=== PATIENT | male | born 1980 | race Caucasian/White ===

== ENCOUNTER → 2017-11-21 | Outpatient (CLI) | payer BC ==
--- NOTE | 2017-11-23 23:48 | MR ---
EXAMINATION TYPE: MR lumbar spine wo con DATE OF EXAM: 11/21/2017 COMPARISON: None HISTORY: 37-year-old male with Low back pain TECHNIQUE: Multiplanar, multisequence images of the lumbar spine were acquired. Findings: Alignment is maintained. Vertebral body heights are preserved. No suspicious bone marrow replacement. Conus medullaris is normal. No prevertebral or paravertebral soft tissue abnormality. There is a component of congenital spinal canal narrowing in the mid to lower lumbar spine with AP ca nal dimension of 1.2 cm. From T12 through L4 levels, no significant spinal canal or neuroforaminal stenosis. At L4-L5, there is diffuse disc bulge with mild disc desiccation and prominent posterior annular fiss ure. Changes result in accentuated mild spinal canal stenosis. Disc material closely approaches and m ay abut the traversing left L5 nerve root. Minimal bilateral inferior neuroforaminal narrowing. At L5-S1, there is a central, right paracentral disc protrusion. Disc material closely approaches and may abut the traversing right S1 nerve root. Minimal inferior right neural foraminal narrowing. No s camila canal stenosis. IMPRESSION: 1. Degenerative disc disease at L4-L5 and L5-S1 with mild disc desiccation and bulging discs. 2. Findings are superimposed on a mild congenital spinal canal narrowing in the mid to lower lumbar s pine. 3. At L4-L5, there is a prominent posterior annular fissure with accentuated mild spinal canal stenos is. Disc material closely approaches and may abut the traversing left L5 nerve root. Minimal bilatera l inferior foraminal narrowing. 4. At L5-S1, there is a central, right paracentral herniation with disc material closely approaching and possibly abutting the traversing right S1 nerve root.
== END | disposition home or self-care (01) ==
LOC: RADMRIMAIN 06:04
PROVIDERS: ATTEND Family Medicine
DX: M48.061 Spinal stenosis, lumbar region without neurogenic claudication (principal); M99.73 Connective tissue and disc stenosis of intervertebral foramina of lumbar region; M51.17 Intervertebral disc disorders with radiculopathy, lumbosacral region
CPT/HCPCS: 72148

== ENCOUNTER → 2019-05-06 | Outpatient (CLI) | payer OTHER, BC ==
[2019-05-06 12:31] VITALS: BP 138/85; PULSE 73; RESP 16
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
== END | disposition home or self-care (01) ==
LOC: PNWHC3 12:05
PROVIDERS: ATTEND Anesthesiology
DX: M48.061 Spinal stenosis, lumbar region without neurogenic claudication (principal); M51.16 Intervertebral disc disorders with radiculopathy, lumbar region; Z79.1 Long term (current) use of non-steroidal anti-inflammatories (NSAID); Z79.899 Other long term (current) drug therapy
CPT/HCPCS: 99211

== ENCOUNTER → 2019-05-07 | Outpatient (CLI) | payer BC ==
--- NOTE | 2019-05-08 09:52 | CT ---
EXAMINATION TYPE: CT urogram wo/w con DATE OF EXAM: 05/07/2019 COMPARISON: None INDICATION: hematuria X 1 year DLP: 1793.3 mGycm, Automated exposure control for dose reduction was used. CONTRAST: 100 mL of Isovue 300. Study performed without Oral Contrast TECHNIQUE: Axial images were obtained from above the diaphragm to the pubic rami in the axial plane a t 5 mm thick sections. Reconstructed images are reviewed on the computer in the coronal plane. FINDINGS: Limited CT sections are obtained the lung bases. The lung bases are clear. CT ABDOMEN: Liver: Normal Spleen: Normal Pancreas: Normal Adrenal glands: The adrenal glands are normal. Gallbladder: Normal Kidneys: No masses are evident. No hydronephrosis is present. No cysts are present. No renal stone s are evident. Delayed images obtained to the kidneys appear unremarkable. Aorta: Normal Inferior vena cava: Normal. CT PELVIS: Loops of bowel within the abdomen and pelvis are normal. Studies without oral contrast limiting b owel evaluation. Appendix: Normal as visualized. Urinary bladder: Appears normal pre and postcontrast. Genitourinary structures: Prostate is prominent. Some calcification is present. Osseous structures: No suspicious lytic or sclerotic lesions. Three-D reconstructed images performed separately on the computer by the technologist are presented t hrough the renal collecting system. Renal calyces and infundibulum and renal pelves appear normal. No hydronephrosis is evident. No hydroureter is evident. The distal left ureter has some limitation on visualization. Source images suggest the distal left ureter is intact without dilatation. IMPRESSIONS: 1. Normal CT urogram. 2. No suspicious etiology to account for hematuria is evident.
== END | disposition home or self-care (01) ==
LOC: RADCTMAIN 14:58
PROVIDERS: ATTEND Surgery
DX: R31.9 Hematuria, unspecified (principal)
CPT/HCPCS: 74178; 74400; Q9967

== ENCOUNTER 2019-06-17 08:54 | Day surgery (SDC) | payer BC ==
[2019-06-16 12:01] VITALS: BMI 28.8
[~2019-06-17 08:54] MED LIST: DEXAMETHASONE SOD PHOSPHATE 10 MG/ML 1 ML VIAL ONE; IOPAMIDOL M200 10 ML VIAL ONE; LACTATED RINGERS 1,000 ML IV SCH; MIDAZOLAM 2 MG/2 ML VIAL ONE; fentaNYL (PF) 50 MCG/ML 2 ML AMP ONE
[2019-06-17 09:49] VITALS: TEMP 97.9
[2019-06-17] MEDS ORDERED: LIDOCAINE 1% (10MG/ML) FOR IV START INTRADERMA ONE (09:58)
[2019-06-17] MEDS ORDERED: IV FLUID CONTINUATION 1,000 ML IV ONE (10:58)
--- NOTE | 2019-06-17 11:33 | P.PCN ---
Date of Procedure: 06/17/19 Procedure(s) Performed: PREOPERATIVE DIAGNOSIS: Lumbar radiculopathy POSTOPERATIVE DIAGNOSIS: Lumbar radiculopathy Attending physician: Meme Mckeon M.D. PROCEDURE 1. Transforaminal epidural steroid injection under fluoroscopic guidance L4-5 level, left side 2. Lumbar epidurogram ANESTHESIA: Local with 1% lidocaine 3 ml ; IV sedation with Versed and fentanyl , sedation time 6 minutes PROCEDURE INDICATION: The patient with low back pain and radiculopathy symptoms unresponsive to conservative treatment. Fluoroscopy was used for the procedure and fluoroscopic images were saved to the radiology portion of patient's chart. PROCEDURE DESCRIPTION / TECHNIQUE: The patient was seen and identified in the preoperative area. Risks, benefits, complications, and alternatives were discussed with the patient. The patient agreed to proceed with the procedure and signed the consent. IV was started, and vital signs were stable. Patient was taken to the OR and time out was completed. The patient was placed in the prone position on procedure table and a pillow was placed under the abdomen to reduce lumbar lordosis. The lumbosacral area was prepped and draped in the usual sterile fashion. Vital signs were closely monitored during the procedure. Conscious sedation was used. Using oblique fluoroscopy, the chin of the ``Dariusz dog and the skin and deeper tissues just below was localized with 1% lidocaine. Subsequently, a 22- gauge 3.5-inch spinal needle was advanced under a tunneled view fluoroscopic guidance just underneath the chin of the ``Dariusz dog . Under lateral fluoroscopy, the needle was then advanced to the posterior border of the foramen. After negative aspiration of CSF and blood and with no paresthesias, 1 mL of Isovue-200 contrast dye was injected under live fluoroscopy and there was no evidence of intravascular injection. The injectate solution consisting of 10 mg of dexamethasone with 1 mL of 1% lidocaine was then delivered. The needle was withdrawn intact. At the end of the procedure, skin was cleansed, and bandages were applied. COMPLICATIONS: None COMMENTS: DISPOSITION / PLANS: The patient was placed in a supine position and transferred to the recovery area in a stable condition for observation. There was no evidence of lower extremity motor or sensory deficit after the procedure. Patient was discharged from the recovery room after meeting discharge criteria. Home discharge instructions were given to the patient by the staff. The patient will follow up for repeat procedure in 4-6 weeks.
[2019-06-17 11:38] VITALS: BP 135/74; PULSE 77; RESP 18
--- NOTE | 2019-06-17 13:46 | FL ---
EXAMINATION TYPE: FL guided pain mgmt statistic DATE OF EXAM: 06/17/2019 HISTORY: Fluoroscopy time 5 seconds of fluoroscopy provided. IMPRESSION: 1. Fluoroscopy time.
== END 2019-06-17 11:38 | disposition home or self-care (01) ==
LOC: ORPAIN 08:54
PROVIDERS: ATTEND Anesthesiology
DX: M54.16 Radiculopathy, lumbar region (principal)
CPT/HCPCS: 64483; J2250; J1100; J3010; Q9966

== ENCOUNTER → 2019-09-08 | Outpatient (CLI) | payer BC ==
--- NOTE | 2019-09-08 19:12 | MR ---
MR pelvis with and without contrast HISTORY: Blood in semen status post vasectomy Multiplanar multisequence and postcontrast images obtained through the pelvis following 9 cc Gadavist IV Correlation CT urogram 05/07/2019 Bone marrow signal is normal. Prostate shows a normal size. Urinary bladder is unremarkable. No abnor mal enhancement. No free fluid noted within the pelvis. Spermatic cords and inguinal canals are unrem arkable and symmetric in appearance. Testes and vas deferens show a symmetric appearance, signal in t he right vas deferens however is not as T2 bright on the right as on the left, axial dataset image 24 series 701. No evident adenopathy. IMPRESSION: Asymmetry T2 signal of questionable clinical significance in the vas deferens. No abnorma lity evident to account for patient's symptoms. Follow-up as indicated.
== END | disposition home or self-care (01) ==
LOC: RADMRIMAIN 14:57
PROVIDERS: ATTEND Surgery
DX: R36.1 Hematospermia (principal)
CPT/HCPCS: 72197; A9585

== ENCOUNTER → 2020-02-28 | Outpatient (CLI) | payer BC ==
[2020-02-28 09:24] VITALS: BP 138/71; PULSE 71; RESP 18; TEMP 98
--- NOTE | 2020-02-28 09:34 | P.PAINPG ---
Subjective Progress Note Date: 02/28/20 Carlos 39-year-old gentleman presents today for reevaluation secondary to low back pain rating down his left leg. He reports she's had this pain beginning in the area which significantly improved with the transfemoral epidural steroid injection. As for his pain he reports a sharp shooting pain from the middle of his spine radiating down the left leg all way down to the ankle. Pain comes and goes depending on certain activities. Usually pain persists when standing for long periods time or sitting for long present time. Persistent in physical therapy continues to do some the exercises. He denies any other symptoms. Denies any bowel or bladder incontinence. Denies any upper extremity weakness. Denies any headaches. Objective - Vital Signs Vital signs: Vital Signs Temp 98 F 02/28/20 09:20 Pulse 71 02/28/20 09:20 Resp 18 02/28/20 09:20 BP 138/71 02/28/20 09:20 Pulse Ox 98 02/28/20 09:20 - Exam General: Awake and alert oriented 3 no distress Respiratory exam: No audible wheezing no accessory muscle usage Cardiovascular exam: regular rate, palpable bilateral pulses, no lower extremity edema Abdominal exam: No distention nontender to palpation Cervical spine: Normal alignment, Spurling's negative, facet loading negative, Hazmat Cdl A Driver strength is 5/5, blank negative Lumbar spine: There is a loss of lumbar lordosis with some atrophy of the para spinal muscles and is slightly obese midline. Lumbar spinal extension is slightly limited. Flexion is normal. Left lateral sidebending is limited, right lateral sidebending is normal. Straight leg raise is positive on the left. There is left tibialis anterior weakness compared to the right. Quadriceps and hamstring strength is normal bilaterally. Sacroiliac joints: Nontender to palpation, INGA is negative, Gaenselon negative Neuro exam: Normal sensation in bilateral upper extremities, deep tendon reflexes are 2+ bilateral upper extremities. Normal sensation in bilateral lower extremities. Deep tendon reflexes are 2+ in the right and 1+ in left patella and left Achilles. Psych exam: Cooperative, appropriate mood Assessment and Plan Assessment: #1 lumbar radiculopathy. #2 lumbar degenerative disc disease Plan: At this time we will repeat the lumbar transfemoral epidural steroid injection at the left L4-L5. Patient does not need sedation. He'll continue with conservative therapies including [facility] exercises. PQRS Measure Charge Sheet Measure #130: Documentation of Current Meds in Medical Chart: Patient's medications documented in chart Measure #226: Tobacco Use: Screen & Cessation Intervention: Pt not a tobacco user Measure #408: Opioid Therapy Follow-up Evaluation: Patient had NO f/u eval minimum every 3 months during opioid therapy Measure #317: Preventitive Care & Scrn High Bld Press & F/U: Normal blood pressure, f/u not required Measure #128: Body Mass Index (BMI) Screening & Follow-up: BMI documented within normal parameters Measure #131: Pain Assessment & Follow-up: Pain positive & plan documented Measure #431: Unhealthy Alcohol Use Preventative Care & Scrn: Patient not identified as an unhealthy alcohol user PQRS Narrative: Smoking Status Never smoker Blood Pressure 138/71 Pain Intensity [Lower Back] 6 Scale Used Numeric (1 - 10) Hx Alcohol Use (MH) Yes: social Home Medications: Ambulatory Orders Dicyclomine HCl [Bentyl] 20 mg PO QID PRN 05/03/19 Escitalopram [Lexapro] 10 mg PO DAILY 05/03/19 Meloxicam 15 mg PO DIRECTED PRN 05/03/19 Multivitamins, Thera [Multivitamin (formulary)] 1 tab PO DAILY 06/16/19 L.acidoph,Paracasei, B.lactis [Probiotic] 1 each PO DAILY 02/23/20 Controlled Substance Measures - Controlled Substance Measures Is patient prescribed a controlled substance at discharge?: No
== END | disposition home or self-care (01) ==
LOC: PNWHC3 09:13
PROVIDERS: ATTEND Hospitalist
DX: M51.16 Intervertebral disc disorders with radiculopathy, lumbar region (principal); Z79.899 Other long term (current) drug therapy; Z79.891 Long term (current) use of opiate analgesic
CPT/HCPCS: 99211

== ENCOUNTER 2020-03-28 10:04 | Day surgery (SDC) | payer BC ==
[2020-03-27 11:08] VITALS: BMI 30.2
[~2020-03-28 10:04] MED LIST changes: -DEXAMETHASONE SOD PHOSPHATE 10 MG/ML 1 ML VIAL ONE; -IOPAMIDOL M200 10 ML VIAL ONE; -MIDAZOLAM 2 MG/2 ML VIAL ONE; -fentaNYL (PF) 50 MCG/ML 2 ML AMP ONE
[2020-03-28 10:20] VITALS: RESP 16; TEMP 97.1
[2020-03-28] MEDS ORDERED: methylPREDNISolone ACETATE 40 MG/ML 1 ML VIAL ONE (10:38)
[2020-03-28] MEDS ORDERED: IOPAMIDOL M200 10 ML VIAL ONE (10:38)
--- NOTE | 2020-03-28 10:57 | P.PCN ---
Date of Procedure: 03/28/20 Procedure(s) Performed: PREOPERATIVE DIAGNOSIS: Lumbar radiculopathy . POSTOPERATIVE DIAGNOSIS: Same as preoperative diagnoses. PROCEDURE 1. Transforaminal epidural steroid injection under fluoroscopic guidance at left L4-5 level. (Fluoroscopy images stored on file in the radiology Department ) 2. Lumbar epidurogram . ANESTHESIA: Local with 1% lidocaine 3 ml only .( NO IV SEDATIONS ) EBL: Minimal PROCEDURE INDICATION: The patient with low back pain and radiculopathy symptoms unresponsive to conservative treatment. PROCEDURE DESCRIPTION / TECHNIQUE: The patient was seen and identified in the preoperative area. Risks, benefits, complications, and alternatives were discussed with the patient. The patient agreed to proceed with the procedure and signed the consent., and vital signs were stable. Patient was taken to the OR and time out was completed. The patient was placed in the prone position on procedure table and a pillow was placed under the abdomen to reduce lumbar lordosis. The lumbosacral area was prepped and draped in the usual sterile fashion. Critical pause was taken. Vital signs were closely monitored during the procedure. Using oblique fluoroscopy, the chin of the `FritzDariusz dog at L4-5 level was identified, and the skin and deeper tissues just below was localized with 1% lidocaine. Subsequently, a 22-gauge 3.5-inch spinal needle was advanced under a tunneled view fluoroscopic guidance just underneath the chin of the `FritzDariusz dog at the left L4-5 Under lateral fluoroscopy, the needle was then advanced to the posterior border of the interforaminal space. After negative aspiration of CSF and blood and with no paresthesias, 1 mL Isovue 200 contrast dye was injected excellent epidurogram and outlining of the nerve root Subsequently, 3 mL of block solution containing 80 mg Depo-Medrol and 2 mL of 0.9% normal saline PF was injected. Needle was removed and the same procedure was repeated at the right/left level (s). At the end of the procedure, skin was cleansed, and bandages were applied. COMPLICATIONS:none DISPOSITION / PLANS: The patient was placed in a supine position and transferred to the recovery area in a stable condition for observation. There was no evidence of lower extremity motor or sensory deficit after the procedure. Patient was discharged from the recovery room after meeting discharge criteria. Home discharge instructions were given to the patient by the staff. The patient was reexamined prior to discharge.
[2020-03-28 11:06] VITALS: BP 131/83; PULSE 67
--- NOTE | 2020-03-28 14:23 | FL ---
EXAMINATION TYPE: FL guided pain mgmt statistic DATE OF EXAM: 03/28/2020 CLINICAL HISTORY: Low back pain. TECHNIQUE: Fluoroscopy. COMPARISON: None. FINDINGS: Fluoroscopic guidance was provided during pain relief procedure performed by Dr. Clifton . A total of 5 seconds of fluoroscopic time was utilized during the procedure and 1 spot images are acquired. Single limited acquired shows needle localization and contrast injection inferior L4 level . IMPRESSION: As Above.
== END 2020-03-28 11:16 | disposition home or self-care (01) ==
LOC: ORPAIN 10:04
PROVIDERS: ATTEND Specialist
DX: M54.16 Radiculopathy, lumbar region (principal)
CPT/HCPCS: 64483; J1030; Q9966

== ENCOUNTER 2021-02-16 10:54 | Day surgery (SDC) | payer BC ==
[2021-02-14 11:24] VITALS: BMI 28.0
[2021-02-16 11:18] VITALS: TEMP 97.9
[2021-02-16] MEDS ORDERED: LIDOCAINE 1% (10MG/ML) FOR IV START INTRADERMA ONE (11:33)
[2021-02-16] MEDS: LACTATED RINGERS 1,000 ML IV SCH ×2 (11:33→12:49)
[2021-02-16] MEDS ORDERED: PROPOFOL 10 MG/ML 20 ML VIAL IV ONE (12:50)
[2021-02-16] MEDS ORDERED: LIDOCAINE 1% INJ 10MG/ML (20 ML MDV) ONE (12:50)
--- NOTE | 2021-02-16 13:08 | P.PCN ---
Date of Procedure: 02/16/21 Procedure(s) Performed: Brief history: Patient is a pleasant 40-year-old white male scheduled for an elective upper endoscopy as well as colonoscopy as a part of evaluation of GERD, abdominal pain and chronic diarrhea for the last 10 years duration. He usually has not was anywhere from 3-5 a day which are loose to watery in consistency. He denies any rectal bleeding. Procedure performed: Esophagogastroduodenoscopy with biopsy Colonoscopy with biopsy Preoperative diagnosis: GERD/abdominal pain/chronic diarrhea of several years duration Anesthesia: MAC Procedure: After informed consent was obtained from the patient was brought into the endoscopy unit and IV sedation was administered by anesthesia under continuous monitoring. Initially upper endoscopy was done. The Olympus GF 160 video endoscope was inserted inserted into the mouth and esophagus intubated without any difficulty and was gradually advanced into the stomach and duodenum and carefully examined. The bulb and second part of the duodenum appeared normal. Biopsies were done from the duodenum to rule out celiac disease. The scope was then withdrawn into the stomach adequately insufflated with air and upon careful examination the antrum had mild gastritis and biopsies were done from this area. The body, cardia and fundus appeared normal. The scope was then withdrawn into the esophagus. The GE junction was located at 40 cm to the incisors. It appeared regular wit2 superficial erosions consistent with LA grade B reflux esophagitis.Rest of the esophagus appeared normal. Patient tolerated the procedure well. At this time the patient continued to remain sedation. Initial digital rectal examination was normal. Olympus CF 160 video colonoscope was then inserted into the rectum and gradually advanced to the cecum without any difficulty. Careful examination was performed as the scope was gradually being withdrawn. The prep was excellent. Terminal ileum was intubated and 20 cm visualized that had mild lymphoid hyperplasia but no evidence of ileitis. The cecum, ascending colon, transverse colon, descending colon, sigmoid colon and rectum appeared normal. and biopsies were done from ascending and descending colon to rule out microscopic/collagenous colitis Retroflexion was performed in the rectum and no lesions were noted. Patient tolerated the procedure well. Impression: 1. Upper endoscopy revealed mild antral gastritis and LA grade B reflux esophagitis 2. Colonoscopy was within normal limits with no evidence of colitis or colorectal neoplasia Recommendations: Findings of this examination were discussed with the patient as well as his family. He was advised to follow with the biopsy results. He will continue with Bentyl as needed for the chronic diarrhea.
[2021-02-16 13:45] VITALS: BP 112/76; PULSE 70; RESP 20
== END 2021-02-16 13:40 | disposition home or self-care (01) ==
LOC: ORWHC2ENDO 10:54
PROVIDERS: ATTEND Internal Medicine Gastroenterology
DX: K21.00 Gastro-esophageal reflux disease with esophagitis, without bleeding (principal); K29.60 Other gastritis without bleeding; K52.9 Noninfective gastroenteritis and colitis, unspecified
CPT/HCPCS: 45380; 43239; J2001; J2704; 88305

== ENCOUNTER 2021-04-17 06:20 | Emergency (ER) | payer BC ==
[2021-04-17 06:28] VITALS: RESP 18
[2021-04-17] MEDS ORDERED: ONDANSETRON 4 MG/2 ML VIAL IVP STA (06:59)
[2021-04-17] MEDS ORDERED: SODIUM CHLORIDE 0.9% 1,000 ML IV STA (06:59)
--- NOTE | 2021-04-17 07:08 | ED ---
General Adult HPI - General Chief complaint: Syncope Stated complaint: Syncope, Covid+ Time Seen by Provider: 04/17/21 06:34 Source: patient, RN notes reviewed Mode of arrival: ambulatory Limitations: no limitations - History of Present Illness Initial comments: Patient 40-year-old male presented to the emergency room today with chief complaint of cough congestion. Patient does admit that symptoms started approximately one week ago. He does admit that he tested positive COVID-19 the following day. Patient does admit that last night he was getting up to the bathroom. He felt a little dizzy little lightheaded. He believes he passed out. Patient does admit that when he went down he fell down onto the right knee. He does admit feeling a little bit better today. Says some soreness to the right knee is worse with movements. The patient denies any other complaints or any other symptoms currently at this time. - Related Data Home Medications Medication Instructions Recorded Confirmed Dicyclomine HCl [Bentyl] 20 mg PO QID PRN 05/03/19 02/14/21 Escitalopram [Lexapro] 20 mg PO DAILY 05/03/19 02/14/21 Multivitamins, Thera [Multivitamin 1 tab PO DAILY 06/16/19 02/14/21 (formulary)] L.acidoph,Paracasei, B.lactis 1 each PO DAILY 02/23/20 02/14/21 [Probiotic] Ascorbic Acid [Vitamin C] 500 mg PO DAILY 02/14/21 02/14/21 Cholecalciferol [Vitamin D3 (25 25 mcg PO DAILY 02/14/21 02/14/21 Mcg = 1000 Iu)] predniSONE See Taper PO DIRECTED 02/14/21 02/14/21 Allergies Allergy/AdvReac Type Severity Reaction Status Date / Time No Known Allergies Allergy Verified 04/17/21 06:28 Review of Systems ROS Statement: Those systems with pertinent positive or pertinent negative responses have been documented in the HPI. ROS Other: All systems not noted in ROS Statement are negative. Past Medical History Past Medical History: Hearing Disorder / Deafness, Musculoskeletal Disorder Additional Past Medical History / Comment(s): Back pain, hx of colitis, IBS, tinnitus. CURRENTLY ON TAPER PREDNISONE PACK FOR POSSIBLE INNER LT EAR INFECTION History of Any Multi-Drug Resistant Organisms: None Reported Additional Past Surgical History / Comment(s): deviated septum sx. Pain procedure 2/13/20, wisdom teeth. COLONOSCOPY Past Anesthesia/Blood Transfusion Reactions: No Reported Reaction Past Psychological History: Anxiety, PTSD Smoking Status: Never smoker Past Alcohol Use History: Occasional Past Drug Use History: None Reported - Past Family History Mother Family Medical History: No Reported History General Exam - General Exam Comments Initial Comments: General: The patient is awake and alert, in no distress, and does not appear acutely ill. Eye: Pupils are equal, round and reactive to light, extra-ocular movements are intact. No nystagmus. There is normal conjunctiva bilaterally. No signs of icterus. Ears, nose, mouth and throat: There are moist mucous membranes and no oral lesions. Neck: The neck is supple, there is no tenderness or JVD. Cardiovascular: There is a regular rate and rhythm. No murmur, rub or gallop is appreciated. Respiratory: Lungs are clear to auscultation, respirations are non-labored, breath sounds are equal. No wheezes, stridor, rales, or rhonchi. Musculoskeletal: Normal ROM, no tenderness. Strength 5/5. Sensation intact. Pulses equal bilaterally 2+. Neurological: A&O x 3. CN II-XII intact, There are no obvious motor or sensory deficits. Coordination appears grossly intact. Speech is normal. Skin: Skin is warm and dry and no rashes or lesions are noted. Psychiatric: Cooperative, appropriate mood & affect, normal judgment. Limitations: no limitations Course Vital Signs 04/17/21 04/17/21 04/17/21 06:24 06:33 08:04 Temperature 98.6 F Pulse Rate 74 69 Pulse Rate [ 67 Mental Health Specialist ] Respiratory 18 18 Rate Blood Pressure 127/86 114/68 O2 Sat by Pulse 99 97 Oximetry EKG Findings - EKG Comments: EKG Findings:: EKG performed: 632. Normal sinus rhythm at 67 bpm. LA interval 146. QRS 100. QT/QTc 394/416. No acute ST changes. Medical Decision Making - Medical Decision Making Chest x-ray was reviewed and was unremarkable. Patient's pulse ox remains stable. Was discussed with patient about myocardial bodies. Emergency room. Patient was advised that this is an expiratory mental drug that is authorized to emergency use. Patient was agreeable to this he had a infusion here in the emergency room. His labs were reviewed. His potassium was 3.2 was given potassium supplement. Sodium 128. Was given IV fluids. Patient states feeling well at this time will be discharged home to follow-up family physician return here to emergency room if any symptoms increase worsen or for any other concerns. He states understanding and is in agreement. - Lab Data Result diagrams: 04/17/21 07:06 04/17/21 07:06 Lab Results 04/17/21 04/17/21 04/17/21 Range/Units 07:06 07:06 07:06 WBC 6.6 (3.8-10.6) k/uL RBC 5.15 (4.30-5.90) m/uL Hgb 16.5 (13.0-17.5) gm/dL Hct 47.5 (39.0-53.0) % MCV 92.2 (80.0-100.0) fL MCH 32.0 (25.0-35.0) pg MCHC 34.7 (31.0-37.0) g/dL RDW 12.6 (11.5-15.5) % Plt Count 202 (150-450) k/uL MPV 6.9 Neutrophils % 74 % Lymphocytes % 16 % Monocytes % 8 % Eosinophils % 0 % Basophils % 0 % Neutrophils # 4.8 (1.3-7.7) k/uL Lymphocytes # 1.0 (1.0-4.8) k/uL Monocytes # 0.5 (0-1.0) k/uL Eosinophils # 0.0 (0-0.7) k/uL Basophils # 0.0 (0-0.2) k/uL Sodium 128 L (137-145) mmol/L Potassium 3.2 L (3.5-5.1) mmol/L Chloride 92 L (98-107) mmol/L Carbon Dioxide 28 (22-30) mmol/L Anion Gap 8 mmol/L BUN 27 H (9-20) mg/dL Creatinine 0.92 (0.66-1.25) mg/dL Est GFR (CKD-EPI)AfAm >90 (>60 ml/min/1.73 sqM) Est GFR (CKD-EPI)NonAf >90 (>60 ml/min/1.73 sqM) Glucose 125 H (74-99) mg/dL Calcium 8.5 (8.4-10.2) mg/dL Troponin I <0.012 (0.000-0.034) ng/mL Disposition Clinical Impression: COVID-19, Hypokalemia Disposition: HOME SELF-CARE Condition: Good Additional Instructions: Please use medication as discussed. Please follow-up with family doctor in the next 2 days of symptoms have not improved. Please return to emergency room if the symptoms increase or worsen or for any other concerns. Is patient prescribed a controlled substance at d/c from ED?: No Referrals: Jose Angel Joshi MD [Primary Care Provider] - 1-2 days Time of Disposition: 08:41
[2021-04-17 07:26] LABS: Basophils % (A) 0 %; Eosinophils % (A) 0 %; HCT 47.5 % (39.0-53.0); HGB 16.5 gm/dL (13.0-17.5); Lymphocytes % (A) 16 %; MCHC 34.7 g/dL (31.0-37.0); MCV 92.2 fL (80.0-100.0); Mean Platelet Volume 6.9; Monocytes # (A) 0.5 k/uL (0-1.0); Monocytes % (A) 8 %; Neutrophils # (A) 4.8 k/uL (1.3-7.7); Neutrophils % (A) 74 %; Platelet Count 202 k/uL (150-450); RBC 5.15 m/uL (4.30-5.90); RDW 12.6 % (11.5-15.5); WBC 6.6 k/uL (3.8-10.6)
[2021-04-17] MEDS ORDERED: BAMLANIVIMAB (EUA) 700 MG, ETESEVIMAB (EUA) 1,400 MG in SODIUM CHLORIDE 0.9% 50 ML IVPB ONE (07:30)
[2021-04-17] MEDS ORDERED: ACETAMINOPHEN TAB 500 MG TAB PO STA (07:32)
[2021-04-17 07:47] LABS: African American GFR (CKD) >90 (>60 ml/min/1.73 sqM); Anion Gap 8 mmol/L; Blood Urea Nitrogen 27 mg/dL (9-20); Calcium 8.5 mg/dL (8.4-10.2); Carbon Dioxide 28 mmol/L (22-30); Chloride 92 mmol/L (98-107); Glucose 125 mg/dL (74-99); Non-African American GFR(CKD) >90 (>60 ml/min/1.73 sqM); Potassium 3.2 mmol/L (3.5-5.1); Sodium 128 mmol/L (137-145)
--- NOTE | 2021-04-17 07:58 | XR ---
EXAMINATION TYPE: XR knee complete RT DATE OF EXAM: 04/17/2021 CLINICAL HISTORY: Fall injury with pain. TECHNIQUE: Three views of the right knee are obtained. COMPARISON: None. FINDINGS: There is no acute fracture/dislocation evident in right knee. Mild narrowing medial tibiof emoral and patellofemoral compartments. No significant spurring. Overlying clothing material distal f emoral level. IMPRESSION: There is no acute fracture or dislocation in the right knee.
[2021-04-17] MEDS ORDERED: SODIUM CHLORIDE 0.9% 50 ML IVPB ONE (08:00)
--- NOTE | 2021-04-17 08:08 | XR ---
EXAMINATION TYPE: XR chest 1V portable DATE OF EXAM: 04/17/2021 COMPARISON: NONE HISTORY: Cough and Covid. TECHNIQUE: Single AP portable frontal upright view of the chest is obtained. FINDINGS: There is no focal air space opacity, pleural effusion, or pneumothorax seen. The cardiac silhouette size is within normal limits. The osseous structures are intact. Overlying EKG leads. IMPRESSION: No acute pulmonary process.
[2021-04-17] MEDS ORDERED: POTASSIUM CHLORIDE ER 20 MEQ TAB.ER PO STA (08:14)
[2021-04-17 09:26] VITALS: BP 115/71; PULSE 85; TEMP 98.4
== END 2021-04-17 09:25 | disposition home or self-care (01) ==
LOC: EC 06:20
DX: U07.1 COVID-19 (principal); E87.6 Hypokalemia; R55 Syncope and collapse
CPT/HCPCS: 36415; 93005; 80048; 84484; 85025; 73562; 71045; 99284; 96374; 96361; J2405; J3490

== ENCOUNTER → 2021-05-17 | Outpatient (CLI) | payer BC ==
[2021-05-17 19:05] LABS: Basophils # (A) 0.04 X 10*3/uL (0.00-0.10); Basophils % (A) 0.5 %; Eosinophils # (A) 0.08 X 10*3/uL (0.04-0.35); Eosinophils % (A) 0.9 %; HCT 52.5 % (39.6-50.0); Lymphocytes # (A) 2.15 X 10*3/uL (0.90-5.00); Lymphocytes % (A) 25.1 %; MCH 30.2 pg (27.0-32.0); MCHC 32.4 g/dL (32.0-37.0); MCV 93.4 fL (80.0-97.0); Mean Platelet Volume 8.9 fL (9.5-12.2); Monocytes # (A) 0.55 X 10*3/uL (0.20-1.00); Monocytes % (A) 6.4 %; Neutrophils % (A) 66.6 %; Platelet Count 272 X 10*3/uL (140-440); RBC 5.62 X 10*6/uL (4.40-5.60); RDW 13.5 % (11.5-14.5); WBC 8.56 X 10*3/uL (4.50-10.00)
[2021-05-17 19:21] LABS: African American GFR (CKD) 106.3 (60.0-200.0); Albumin 4.8 g/dL (3.8-4.9); Albumin/Globulin Ratio 1.7 (1.60-3.17); Anion Gap 14.7 mmol/L (10.00-18.00); BUN/Creat Ratio 21.36 Ratio (12.00-20.00); Carbon Dioxide 27.7 mmol/L (20.0-27.5); Globulin 2.8 g/dL (1.6-3.3); Non-African American GFR(CKD) 91.7 (60.0-200.0); Potassium 3.8 mmol/L (3.5-5.5); Total Bilirubin 0.4 mg/dL (0.30-1.20); Total Protein 7.6 g/dL (6.2-8.2)
[2021-05-17 20:55] LABS: Erythrocyte Sedimentation Rate 4 mm/Hr (0-15)
== END | disposition home or self-care (01) ==
LOC: LABWHC1 12:42
PROVIDERS: ATTEND Nurse Practitioner Adult Health
DX: U07.1 COVID-19 (principal); J12.82 Pneumonia due to coronavirus disease 2019
CPT/HCPCS: 36415; 80053; 85025; 85379; 85652

== ENCOUNTER 2021-05-30 09:01 | Emergency (ER) | payer BC ==
[2021-05-30 09:11] VITALS: RESP 18; TEMP 97.7
[2021-05-30] MEDS ORDERED: SODIUM CHLORIDE 0.9% 1,000 ML IV STA (09:24)
--- NOTE | 2021-05-30 09:31 | ED ---
General Adult HPI - General Chief complaint: Syncope Stated complaint: Syncope Time Seen by Provider: 05/30/21 09:12 Source: patient, family Mode of arrival: ambulatory Limitations: no limitations - History of Present Illness Initial comments: 40-year-old male presents to the emergency room for a chief complaint of syncope. Patient states he was at work sitting down when he started to get tunnel vision and broke up in a cold sweat. States that he passed out. He did not hit his head. Patient states this happened a couple months ago when he had COVID-19. Patient denies any chest pain or shortness of breath. Patient did have a shaking episode when this happened. Patient does take diuretic for fluid behind his left ear drum. Patient has no other complaints at this time including shortness of breath, chest pain, abdominal pain, nausea or vomiting, headache, or visual changes. - Related Data Home Medications Medication Instructions Recorded Confirmed Dicyclomine HCl [Bentyl] 20 mg PO QID PRN 05/03/19 02/14/21 Escitalopram [Lexapro] 20 mg PO DAILY 05/03/19 02/14/21 Multivitamins, Thera [Multivitamin 1 tab PO DAILY 06/16/19 02/14/21 (formulary)] L.acidoph,Paracasei, B.lactis 1 each PO DAILY 02/23/20 02/14/21 [Probiotic] Ascorbic Acid [Vitamin C] 500 mg PO DAILY 02/14/21 02/14/21 Cholecalciferol [Vitamin D3 (25 25 mcg PO DAILY 02/14/21 02/14/21 Mcg = 1000 Iu)] predniSONE See Taper PO DIRECTED 02/14/21 02/14/21 Allergies Allergy/AdvReac Type Severity Reaction Status Date / Time No Known Allergies Allergy Verified 05/30/21 09:11 Review of Systems ROS Statement: Those systems with pertinent positive or pertinent negative responses have been documented in the HPI. ROS Other: All systems not noted in ROS Statement are negative. Past Medical History Past Medical History: Hearing Disorder / Deafness, Musculoskeletal Disorder Additional Past Medical History / Comment(s): Back pain, hx of colitis, IBS, tinnitus. CURRENTLY ON TAPER PREDNISONE PACK FOR POSSIBLE INNER LT EAR INFECTION History of Any Multi-Drug Resistant Organisms: None Reported Additional Past Surgical History / Comment(s): deviated septum sx. Pain procedure 06/17/19, wisdom teeth. COLONOSCOPY Past Anesthesia/Blood Transfusion Reactions: No Reported Reaction Past Psychological History: Anxiety, PTSD Smoking Status: Never smoker Past Alcohol Use History: Occasional Past Drug Use History: None Reported - Past Family History Mother Family Medical History: No Reported History General Exam Limitations: no limitations General appearance: alert, in no apparent distress Head exam: Present: atraumatic Eye exam: Present: normal appearance, PERRL, EOMI. Absent: scleral icterus, conjunctival injection ENT exam: Present: normal exam, mucous membranes moist Neck exam: Present: normal inspection, full ROM. Absent: tenderness Respiratory exam: Present: normal lung sounds bilaterally. Absent: respiratory distress, wheezes Cardiovascular Exam: Present: regular rate, normal rhythm, normal heart sounds GI/Abdominal exam: Present: soft, normal bowel sounds. Absent: distended, tenderness Neurological exam: Present: alert Course Vital Signs 05/30/21 05/30/21 09:05 10:16 Temperature 97.7 F Pulse Rate 73 65 Respiratory 18 18 Rate Blood Pressure 137/86 151/73 O2 Sat by Pulse 99 98 Oximetry EKG Findings - EKG Comments: EKG Findings:: Normal sinus rhythm, ventricular rate 75, VT interval 148, QTC 4 26 Medical Decision Making - Medical Decision Making Vitals are stable. Patient well-appearing. Patient does have some dehydration on laboratory work with a BUN to creatinine ratio of 25. Patient given a liter of fluid. Urinalysis unremarkable. EKG nonischemic and troponin negative. D- dimer is normal. I did CT the brain as he was having convulsive movements with syncope which was negative for acute process. At this time I feel the patient had a syncopal episode as he had recent syncopal symptoms, and no postictal status, no biting of the tongue or loss of bladder or bowel. He needs to follow up with primary care for and is minute, possible referral to cardiology. Also discussed asking if they want him to see neuro. Patient is also noted to be on a diuretic for water behind the eardrum. At this point it may be contributing to his dehydration. Discussed possibly discontinuing this. He will talk to his doctor. - Lab Data Result diagrams: 05/30/21 09:37 05/30/21 09:37 Lab Results 05/30/21 05/30/21 05/30/21 Range/Units 09:37 09:37 09:37 WBC 8.2 (3.8-10.6) k/uL RBC 4.86 (4.30-5.90) m/uL Hgb 15.6 (13.0-17.5) gm/dL Hct 46.6 (39.0-53.0) % MCV 96.0 (80.0-100.0) fL MCH 32.2 (25.0-35.0) pg MCHC 33.6 (31.0-37.0) g/dL RDW 13.7 (11.5-15.5) % Plt Count 320 (150-450) k/uL MPV 6.3 Neutrophils % 82 % Lymphocytes % 11 % Monocytes % 4 % Eosinophils % 1 % Basophils % 0 % Neutrophils # 6.8 (1.3-7.7) k/uL Lymphocytes # 0.9 L (1.0-4.8) k/uL Monocytes # 0.4 (0-1.0) k/uL Eosinophils # 0.0 (0-0.7) k/uL Basophils # 0.0 (0-0.2) k/uL PT 10.7 (9.0-12.0) sec INR 1.0 (<1.2) APTT 24.7 (22.0-30.0) sec D-Dimer 0.20 (<0.60) mg/L FEU Sodium 131 L (137-145) mmol/L Potassium 3.7 (3.5-5.1) mmol/L Chloride 96 L (98-107) mmol/L Carbon Dioxide 30 (22-30) mmol/L Anion Gap 5 mmol/L BUN 23 H (9-20) mg/dL Creatinine 0.92 (0.66-1.25) mg/dL Est GFR (CKD-EPI)AfAm >90 (>60 ml/min/1.73 sqM) Est GFR (CKD-EPI)NonAf >90 (>60 ml/min/1.73 sqM) Glucose 142 H (74-99) mg/dL Calcium 9.5 (8.4-10.2) mg/dL Magnesium 2.0 (1.6-2.3) mg/dL Total Bilirubin 1.0 (0.2-1.3) mg/dL AST 24 (17-59) U/L ALT 23 (4-49) U/L Alkaline Phosphatase 86 (38-126) U/L Troponin I (0.000-0.034) ng/mL Total Protein 7.7 (6.3-8.2) g/dL Albumin 4.5 (3.5-5.0) g/dL Urine Color Urine Appearance (Clear) Urine pH (5.0-8.0) Ur Specific [place] (1.001-1.035) Urine Protein (Negative) Urine Glucose (UA) (Negative) Urine Ketones (Negative) Urine Blood (Negative) Urine Nitrite (Negative) Urine Bilirubin (Negative) Urine Urobilinogen (<2.0) mg/dL Ur Leukocyte Esterase (Negative) 05/30/21 05/30/21 Range/Units 09:37 10:16 WBC (3.8-10.6) k/uL RBC (4.30-5.90) m/uL Hgb (13.0-17.5) gm/dL Hct (39.0-53.0) % MCV (80.0-100.0) fL MCH (25.0-35.0) pg MCHC (31.0-37.0) g/dL RDW (11.5-15.5) % Plt Count (150-450) k/uL MPV Neutrophils % % Lymphocytes % % Monocytes % % Eosinophils % % Basophils % % Neutrophils # (1.3-7.7) k/uL Lymphocytes # (1.0-4.8) k/uL Monocytes # (0-1.0) k/uL Eosinophils # (0-0.7) k/uL Basophils # (0-0.2) k/uL PT (9.0-12.0) sec INR (<1.2) APTT (22.0-30.0) sec D-Dimer (<0.60) mg/L FEU Sodium (137-145) mmol/L Potassium (3.5-5.1) mmol/L Chloride (98-107) mmol/L Carbon Dioxide (22-30) mmol/L Anion Gap mmol/L BUN (9-20) mg/dL Creatinine (0.66-1.25) mg/dL Est GFR (CKD-EPI)AfAm (>60 ml/min/1.73 sqM) Est GFR (CKD-EPI)NonAf (>60 ml/min/1.73 sqM) Glucose (74-99) mg/dL Calcium (8.4-10.2) mg/dL Magnesium (1.6-2.3) mg/dL Total Bilirubin (0.2-1.3) mg/dL AST (17-59) U/L ALT (4-49) U/L Alkaline Phosphatase (38-126) U/L Troponin I <0.012 (0.000-0.034) ng/mL Total Protein (6.3-8.2) g/dL Albumin (3.5-5.0) g/dL Urine Color Light Yellow Urine Appearance Clear (Clear) Urine pH 7.5 (5.0-8.0) Ur Specific [place] 1.012 (1.001-1.035) Urine Protein Negative (Negative) Urine Glucose (UA) Negative (Negative) Urine Ketones Negative (Negative) Urine Blood Negative (Negative) Urine Nitrite Negative (Negative) Urine Bilirubin Negative (Negative) Urine Urobilinogen <2.0 (<2.0) mg/dL Ur Leukocyte Esterase Negative (Negative) Disposition Clinical Impression: Syncope, Dehydration Disposition: HOME SELF-CARE Condition: Good Instructions (If sedation given, give patient instructions): Syncope (ED) Additional Instructions: Please follow-up with your primary care doctor this week. Discuss whether you should continue your diuretic. You may need referral to a specialist. Return to the emergency room for any worsening symptoms. Is patient prescribed a controlled substance at d/c from ED?: No Referrals: Jose Angel Joshi MD [Primary Care Provider] - 1-2 days Time of Disposition: 11:11
[2021-05-30 09:46] LABS: Basophils % (A) 0 %; Eosinophils % (A) 1 %; HCT 46.6 % (39.0-53.0); HGB 15.6 gm/dL (13.0-17.5); Lymphocytes # (A) 0.9 k/uL (1.0-4.8); Lymphocytes % (A) 11 %; MCH 32.2 pg (25.0-35.0); MCHC 33.6 g/dL (31.0-37.0); Mean Platelet Volume 6.3; Monocytes # (A) 0.4 k/uL (0-1.0); Monocytes % (A) 4 %; Neutrophils # (A) 6.8 k/uL (1.3-7.7); Neutrophils % (A) 82 %; Platelet Count 320 k/uL (150-450); RBC 4.86 m/uL (4.30-5.90); RDW 13.7 % (11.5-15.5); WBC 8.2 k/uL (3.8-10.6)
--- NOTE | 2021-05-30 09:58 | CT ---
EXAMINATION TYPE: CT brain wo con DATE OF EXAM: 05/30/2021 COMPARISON: None HISTORY: syncopal episode CT DLP: 1086.[address] of the brain was performed. The ventricles, basal cisterns and sulci overlying the cerebral convexities demonstrate a normal appe arance. There is no evidence for intracranial hemorrhage or sulcal effacement. No mass effects are seen. Osseous calvarium is intact. If symptoms persist consider MRI as clinically warranted. IMPRESSION: 1. No acute intracranial process is seen at this time.
--- NOTE | 2021-05-30 10:00 | XR ---
EXAMINATION TYPE: XR chest 2V DATE OF EXAM: 05/30/2021 COMPARISON: 04/17/2021 HISTORY: Syncope TECHNIQUE: Frontal and lateral views of the chest are obtained. FINDINGS: There is no focal air space opacity. No evidence for pneumothorax. No pleural effusion. The cardiac silhouette size is within normal limits. The osseous structures are grossly intact. IMPRESSION: 1. No acute cardiopulmonary process.
[2021-05-30 10:07] LABS: ALT 23 U/L (4-49); AST 24 U/L (17-59); African American GFR (CKD) >90 (>60 ml/min/1.73 sqM); Albumin 4.5 g/dL (3.5-5.0); Alkaline Phosphatase 86 U/L (38-126); Anion Gap 5 mmol/L; Blood Urea Nitrogen 23 mg/dL (9-20); Calcium 9.5 mg/dL (8.4-10.2); Carbon Dioxide 30 mmol/L (22-30); Chloride 96 mmol/L (98-107); Glucose 142 mg/dL (74-99); Non-African American GFR(CKD) >90 (>60 ml/min/1.73 sqM); Potassium 3.7 mmol/L (3.5-5.1); Sodium 131 mmol/L (137-145); Total Protein 7.7 g/dL (6.3-8.2)
[2021-05-30 10:11] LABS: Partial Thromboplastin Time 24.7 sec (22.0-30.0); Prothrombin Time 10.7 sec (9.0-12.0)
[2021-05-30] MEDS ORDERED: ONDANSETRON 4 MG/2 ML VIAL IVP STA (10:22)
[2021-05-30 10:33] LABS: Appearance,Urine Clear (Clear); Bilirubin,Urine Negative (Negative); Blood,Urine Negative (Negative); Color,Urine Light Yellow; Glucose,Urine (UA) Negative (Negative); Ketones,Urine Negative (Negative); Leukocyte Esterase,Urine Negative (Negative); Nitrite,Urine Negative (Negative); PH, Urine 7.5 (5.0-8.0); Protein,Urine Negative (Negative); Specific Gravity,Urine 1.012 (1.001-1.035); Urobilinogen,Urine <2.0 mg/dL (<2.0)
[2021-05-30 11:26] VITALS: BP 139/85; PULSE 73
== END 2021-05-30 11:26 | disposition home or self-care (01) ==
LOC: EC 09:01
DX: R55 Syncope and collapse (principal); E86.0 Dehydration
CPT/HCPCS: 36415; 93005; 85379; 80053; 83735; 84484; 85025; 85610; 85730; 81003; 71046; 70450; 99284; 96374; J2405

== ENCOUNTER → 2022-12-04 | Outpatient (CLI) | payer OTHER ==
--- NOTE | 2022-12-04 11:13 | CA ---
Transthoracic Echo Report Name: Rian Robin Age: 42 Gender: M : 1980 Exam Date: 12/04/2022 08:47 Exam Location: [facility] Ht (in): 69 Wt (lb): 210 Ordering Physician: [facility], Clinic Attending/Referring Phys: Divina Hopkins PAC Labeling Machine Operator Holly Mejia [facility] Procedure CPT: Indications: R07.89 Cardiac Hx: Technical Quality: Fair Contrast 1: Total Dose (mL): Contrast 2: Total Dose (mL): MEASUREMENTS (Male / Female) Normal Values 2D ECHO LV Diastolic Diameter PLAX 5.1 cm 4.2 - 5.9 / 3.9 - 5.3 cm LV Systolic Diameter PLAX 3.6 cm IVS Diastolic Thickness 0.9 cm 0.6 - 1.0 / 0.6 - 0.9 cm LVPW Diastolic Thickness 0.9 cm 0.6 - 1.0 / 0.6 - 0.9 cm LV Relative Wall Thickness 0.4 LVOT Diameter 2.1 cm Ascending Aorta Diameter 3.0 cm M-MODE Aortic Root Diameter MM 2.7 cm LA Systolic Diameter MM 3.8 cm LA Ao Ratio MM 1.4 AV Cusp Separation MM 2.4 cm DOPPLER AV Peak Velocity 98.0 cm/s AV Peak Gradient 3.8 mmHg AV Mean Velocity 75.3 cm/s AV Mean Gradient 2.4 mmHg AV Velocity Time Integral 21.2 cm LVOT Peak Velocity 83.3 cm/s LVOT Peak Gradient 2.8 mmHg LVOT Velocity Time Integral 16.8 cm LVOT Stroke Volume 55.4 cm??? LVOT Stroke Volume Index 26.3 ml/m??? LVOT Cardiac Index 1397.5 cm???/min???m??? AV Area Cont Eq vti 2.6 cm??? AV Area Cont Eq pk 2.8 cm??? Mitral E Point Velocity 81.7 cm/s Mitral A Point Velocity 50.0 cm/s Mitral E to A Ratio 1.6 MV Deceleration Time 138.6 ms LV E' Lateral Velocity 10.9 cm/s Mitral E to LV E' Lateral Ratio 7.5 LV E' Septal Velocity 8.9 cm/s Mitral E to LV E' Septal Ratio 9.1 TR Peak Velocity 235.8 cm/s TR Peak Gradient 22.2 mmHg Right Atrial Pressure 3.0 mmHg Pulmonary Artery Systolic Pressu 25.2 mmHg Right Ventricular Systolic Press 25.2 mmHg FINDINGS Left Ventricle Normal Left ventricular size, wall thickness, systolic function with no obvious regional wall motion abnormalities. Left ventricular ejection fraction is estimated at 55-60 %. Right Ventricle [id number] right ventricular dilatation. Low normal right ventricular global systolic function. Right Atrium Mild right atrial dilatation. Left Atrium Normal left atrial size. Mitral Valve Structurally normal mitral valve. Mild mitral regurgitation. Aortic Valve Trileaflet aortic valve. No aortic valve stenosis or regurgitation. Tricuspid Valve Structurally normal tricuspid valve. Mild tricuspid regurgitation. Pulmonic Valve Structurally normal pulmonic valve. Trace to mild pulmonic regurgitation. Pericardium No pericardial effusion. Aorta Normal size aortic root and proximal ascending aorta. CONCLUSIONS 1. Normal left ventricle size and systolic function 2. Mild mitral and tricuspid regurgitation with no evidence of pulmonary hypertension 3. Dilated right ventricle Previewed by: Dr. Newton Aguila MD (Electronically Signed) Final Date: 04 December 2022 11:11
== END | disposition home or self-care (01) ==
LOC: RADECHMAIN 08:09
DX: I08.1 Rheumatic disorders of both mitral and tricuspid valves (principal); R07.89 Other chest pain
CPT/HCPCS: 93306

== ENCOUNTER → 2022-12-04 | Outpatient (CLI) | payer OTHER ==
--- NOTE | 2022-12-04 11:23 | CA ---
Exercise Stress Test Report Name: Rian Robin Exam Date: 12/04/2022 10:01 Exam Location: [facility] Stress Ht (in): 69 Wt (lb): 210 BSA: 2.11 Ordering Phys: [facility], [facility] Referring Phys: Divina Hopkins PAC Technologist: Alcides Grant Age: 42 Gender: M : 1980 Procedure CPT: Indications: R07.89 ICD-10 Codes: Patient History: PALPITATIONS, ELEVATED CHOLESTEROL LEVELS Medications: ESCITALOPRAM Meds past 24 hrs: Pretest Chest Pain: STRESS TEST Melchor Protocol Exercise Duration (min:sec): 13:[address] Depressions (mm): 0 Angina Score: 0 Marion Score: 13 Resting HR (bpm): 64 Peak HR (bpm): 165 Resting BP (mmHg): 146 / 101 Peak BP (mmHg): 210 / 89 MPHR: 180 Target HR: 153 % MPHR: 92 METS: 13.5 Total Dose: Peak Dose: Atropine: Double Product: 31392 BP Response: Stress Termination: MAX EXERTION/TARGET HR Stress Symptoms: NO SYMPTOMS Stress Summary: The patient's target heart rate was achieved, The hemodynamic response to exercise was normal ECG ANALYSIS Resting ECG: Sinus rhythm. Normal conduction. No arrhythmias. Normal repolarization. Stress ECG: No ECG evidence of ischemia with exercise. Ventricular premature contraction. CONCLUSIONS Patient falls into low-risk group (DTS >= +5). This associates the patient with an annual CV mortality <= 0.5%. 1. Excellent exercise tolerance with normal electrocardiographic response to exercise 2.Nuclear test results to follow. Dr. Newton Aguila MD (Electronically Signed) Final Date: 04 December 2022 11:22
--- NOTE | 2022-12-04 11:51 | NM ---
EXAMINATION TYPE: NM stress cardiolite complete DATE OF EXAM: 12/04/2022 COMPARISON: NONE CLINICAL INDICATION: Male, 42 years old with history of R07.89; TECHNIQUE: After the intravenous administration of 9.5 mCi Tc 99m Sestamibi - Rest images obtained 7 0 minutes post injection. The patient exercised using a SAURABH protocol and 1 minute prior to peak e xercise was injected with 24.9 mCi Tc 99m Sestamibi - Stress images obtained 10 minutes post injectio n. FINDINGS: Targeted heart rate was achieved during performance of the study. Review of stress and rest SPECT kimberly ges demonstrates no distinct perfusion abnormality. Gated analysis shows normal wall motion with an estimated left ventricular ejection fraction of 57 %. IMPRESSION: No scintigraphic evidence for reversible ischemia
== END | disposition home or self-care (01) ==
LOC: RADNMMAIN 08:13
DX: R07.89 Other chest pain (principal)
CPT/HCPCS: 93017; 78452; A9500